=== PATIENT | male | born 1940 | race Caucasian/White ===

== ENCOUNTER 2016-07-31 15:31 | Inpatient (IN) | payer MEDICARE ==
[~2016-07-31] VITALS: Ht 172.7 cm; Wt 71.1 kg
[2016-07-31] VITALS (12 sets, daily range): BP systolic 102–124; BP diastolic 54–71; PULSE 54–70; RESP 12–20; O2SAT 93–98
[2016-07-31] MEDS ORDERED: Heparin 1,000 Units/500 mL NS Premix IV ONE (15:34)
[2016-07-31] MEDS ORDERED: Heparin 5,000 Units/500 mL NS Premix IV ONE (15:34)
[2016-07-31] MEDS ORDERED: Heparin 1,000 Unit/mL 10 mL Inj ONE (15:35)
[2016-07-31] MEDS ORDERED: NitroPRUSSIDE 25,000 mCg/mL 2 mL Inj IV ONE (15:35)
[2016-07-31] MEDS ORDERED: 0.9% Sodium Chloride 250 ML ONE (15:35)
[2016-07-31] MEDS ORDERED: fentaNYL-PF 50 mCg/mL 2 mL Inj ONE (15:40)
[2016-07-31] MEDS ORDERED: Atropine 1 mg/10 mL (Code) Syringe ONE ×2 (15:51→16:04)
[2016-07-31 16:09] LABS: BASOPHILS % (AUTO) 0.5 % (0-3); EOSINOPHILS % (AUTO) 1.9 % (0-5); MONOCYTES % (AUTO) 9.4 % (4-12); Mean Corpuscular Hemoglobin 32.8 pg (27.0-35.0); Mean Corpuscular Volume 98.7 fL (81-100); NEUTROPHILS % (AUTO) 66.4 % (40-74); Platelet Count 235 bil/L (150-400)
[2016-07-31] MEDS ORDERED: Eptifibatide 20,000 mCg/10 mL Inj ONE ×2 (16:09→16:14)
--- NOTE | 2016-07-31 16:37 | DI95 ---
[address] [address] INTERVENTIONAL CARDIAC CATHETERIZATION PATIENT: BRIANNA PHILLIPS : 1940 MR#: [id number] ADMIT: 07/31/2016 JOB ID: [id number] DATE: 07/31/2016 PROCEDURE: 1. Selective right and left coronary angiography. 2. Left heart catheterization. 3. Percutaneous intervention on right coronary artery. INDICATION: Acute inferior NE. PROCEDURAL DETAILS: The reader is referred to the procedure log for complete details. Briefly, it was done via right femoral approach using a 6-Maori system. ANGIOGRAPHIC FINDINGS: 1. Left main: No significant disease. 2. LAD is a moderate caliber vessel. It is free of any critical stenosis. There is a moderate lesion in its proximal segment at the takeoff of a rather large diagonal. It is about 50% in severity. This lesion at some point needs to be evaluated with functional imaging. 3. Circumflex is nondominant and free of any critical stenosis. Mild luminal irregularities are noted. 4. Right coronary artery is a large dominant vessel. It has a stent in its proximal part in the mid segment. The RCA is subtotally occluded. There appears to be large thrombus burden in the RCA. 5. Left heart catheterization revealed an LVEDP of 22. There was no gradient upon pullback. INTERVENTIONAL REPORT: We then proceeded ahead with an intervention of the right coronary artery. A Run-through wire was used along with a standard Ariel guide. Following that, thrombectomy was done with an expressway catheter. We were able to aspirate a fair amount of clot. Subsequent to that, a 4.0 x 30 mm stent was deployed in the mid RCA at 16 atmospheres with excellent angiographic results. The patient is advised to stay on dual antiplatelet therapy for one year post procedure.
[2016-07-31 16:44] LABS: TROPONIN T < 0.010 ug/L (0.0-0.011)
--- NOTE | 2016-07-31 16:44 | CONS ---
[address] [address] CONSULTATION REPORT PATIENT: BRIANNA PHILLIPS : 1940 MR#: [id number] ADMIT: 07/31/2016 JOB ID: [id number] DATE OF SERVICE: 07/31/2016 CHIEF COMPLAINT: Chest discomfort. HISTORY OF PRESENT ILLNESS: This gentleman was transferred from [place] via ambulance. The ambulance alerted our emergency department that there was an acute KS on the way. A field EKG showed inferior ST-segment elevation. The patient was taken directly to the dental laboratory technology teacher. This interview was conducted while the patient was still in the dental laboratory technology teacher. The patient stated that his pain started half an hour before the arrival of the ambulance. He was given morphine en route. Morphine relieved his pain significantly. While I was talking to him he was still having ongoing at least 3/10 chest discomfort. He describes it as a pressure and heaviness in his chest. It occurred while he was unloading his truck. He does not remember having similar episodes in the past few days. Of note, the patient was somewhat anxious and slightly irritable and was in a moderate amount of distress. Some of his responses to my questions were fairly limited with monosyllables. Apparently, the patient has known history of peripheral vascular disease. He has had a vascular procedure on his legs. He also has known history of coronary artery disease having had a stenting procedure in the past. In 2001, there was an angiogram done at this hospital. He follows up with Dr. Joseph. PAST MEDICAL HISTORY: Significant mainly for coronary artery disease and peripheral vascular disease. 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 ALLERGIES: None. MEDICATIONS: At home: 1. Tamsulosin. 2. Aspirin. 3. Fluticasone nasal spray. REVIEW OF SYSTEMS: Comprehensive review of system was done. Pertinent negatives are no GI or bleeding. No upcoming surgeries. No TIAs. No strokes. FAMILY HISTORY: There is no family history of premature coronary artery disease. PERSONAL HISTORY: He is a smoker. He denies any alcohol or drug abuse. PHYSICAL EXAMINATION: Mildly distressed, elderly gentleman who looks his age. Pulse 60, blood pressure 140/70. Neck is supple. No JVD. Chest: Clear. Heart: Sounds S1, S2, regular. No gallops. Abdomen: Soft. Bilateral pulses are palpable. There is a scar from prior surgery on the right groin. Femoral pulses were 2+. HIDE INSPECTOR AND SORTER: Alert, oriented. LABORATORY: Pending. A field EKG showed inferior KS. ASSESSMENT AND PLAN: After obtaining verbal consent from the patient, an angiogram was performed. The details are reported elsewhere. The patient was also given his choices including medical therapy. The patient agreed to proceed ahead with an angiogram. This gentleman has EKG and clinical presentation was consistent with an acute inferior myocardial infarction. He will be admitted to the hospitalist service. Cardiology will follow. In the meantime, I started him on DIMITRIS inhibitors, beta blockers, and dual antiplatelet therapy along with statins. An echocardiogram has been requested for tomorrow. Further management per full discretion of his hospital team. Needless to say, the patient should be encouraged to quit smoking completely.
[2016-07-31 16:47] LABS: Magnesium 1.9 mg/dL (1.6-2.6)
[2016-07-31] MEDS ORDERED: TAMS0.4C98 PO (17:56)
--- NOTE | 2016-07-31 18:22 | NUR ---
RADHA ADMIT 76 YR OLD MALE RECEIVED FROM CUSTOMER SERVICE REPRESENTATIVE TELLER AT 1700 AFTER HEART CATH AND PCI/ANGIOPLASTY. RIGHT GROIN WITH PERCLOSE HAS HAD A SMALL, SLOW LEAK. INTERIOR DESIGNER PACO HAS HELD PRESSURE. 5LB SANDBAG ON. PT NEEDS REMINDING TO KEEP HEAD ON PILLOW AND LEG STRAIGHT. RIGHT DP/PT 2+. CONTINUE TO MONITOR CLOSELY. POST PCI EKG WAS DONE. OTHER VS STABLE. WILL TRANSFER TO [facility] WHEN BED AVAILABLE. PT IS TAKING CLEAR LIQUIDS PO AND IS AWAKE AND VISITING WITH FRIEND.
[2016-07-31] MEDS ORDERED: Sodium Chloride LOK Flush 10 mL Syringe IVFLUSH PRN (18:50)
[2016-07-31] MEDS ORDERED: Clopidogrel 300 mg Tablet (LOADING DOSE) PO ONE (18:50)
[2016-07-31] MEDS ORDERED: Ondansetron 2 mg/mL 2 mL Inj IVPUSH PRN (18:50)
[2016-07-31] MEDS ORDERED: Atropine 1 mg/10 mL (Code) Syringe IVPUSH PRN (18:50)
[2016-07-31] MEDS ORDERED: 0.9% Sodium Chloride 400 ML (4 HRS) IV ONE (18:50)
[2016-07-31] MEDS ORDERED: 0.9% Sodium Chloride 250 ML BOLUS IV PRN (18:50)
[2016-07-31] MEDS ORDERED: Alum-Mag Hydrox-Simeth 30 mL Suspension PO PRN (19:35)
[2016-07-31] MEDS ORDERED: Polyethylene Glycol (PEG) 17 Gm Powder PO PRN (19:35)
--- NOTE | 2016-07-31 19:45 | NUR ---
RADHA TRANSFER PT AND HIS NURSING CARE WERE TRANSFERRED TO ROOM 2026 AT 1930. REPORT AND RN TO RN BEDSIDE HANDOFF WAS DONE WITH VELIA SANTOS. TELE ON AND CONFIRMED WITH MOLECULAR BIOLOGY PROFESSOR. RIGHT GROIN BRUISED BUT OTHERWISE SOFT, NON TENDER, AND NO HEMATOMA NOTED. RIGHT PEDAL PULSES 2+.
[2016-07-31] MEDS ORDERED: MetoCLOpramide 5 mg/mL 2 mL Inj IVPUSH PRN (20:50)
--- NOTE | 2016-07-31 21:26 | PCM.HPMED ---
Subjective Date of Service Jul 31, 2016 Primary Provider: Admitting Physician: Simba Nunez MD Primary Care Physician: Collins Joseph MD Attending Physician: Simba Nunez MD Chief Complaint: Chest pain History of Present Illness: Patient is a 76 year old male with a history of CAD, PVD and BPH. He presented to [facility] via EMS on 07/31/16 with an acute inferior STEMI. This morning the patient reports working outside at home. He was loading objects into a trailer. An argument with a family member ensued and the patient reports beginning to feel chest pain. It was substernal and went into his jaw and left arm. He also felt short of breath. He denies nausea/vomiting. He did no have syncope or dizziness. When it continued for 30 minutes he asked to go to the hospital and EMS was called. It was determined en route that he was having ST elevations and the patient was brought directly to [facility] and the medical lab specialist. Morphine was administered with improvement of his chest discomfort. Cardiac catheterization was performed by Dr. Nunez and the patient received another RCA stent. At the time of this H&P patient reports he is free of symptoms and wishes to eat. The patient reports that he has been having a gradual worsening of his shortness of breath and he has been tolerating less activity. He is uncertain over what time period exactly. He also states that he has had more episodes of dizziness and feeling "wobbly." There have been no syncopal episodes. His symptoms improve with rest. Otherwise, patient has not been unwell with the exception of a head cold about 1 month ago - those symptoms are completely resolved. Review of Systems: A comprehensive review of systems was conducted with the patient and found to be negative except as above in the history of present illness. Allergies Coded Allergies: No Known Allergies (Unverified Allergy, Unknown, 07/31/16) Home Medications Per [employer]: Aspirin 81 mg daily Flonase 2 sprays daily Tamsulosin 0.4 mg daily PMH CAD s/p RCA stent PVD BPH Benign tremor of the head History of two concussions Surgical History Tonsillectomy Appendectomy Family History Family history of Alzheimer's disease, cancer No known family history of CA Social History Hx Alcohol Use: No Hx Substance Use: No Hx Tobacco Use: Yes Smoking Status: Current Every Day Smoker (1/2 PPD for 50+ years) Living Arrangement: with Family Exam Vital Signs Vital Sign - Last Date Time Temp Pulse Resp B/P Pulse Ox O2 Delivery O2 Flow Rate FiO2 07/31/16 19:56 36.5 57 19 117/71 96 Room Air Exam Alert and oriented x3, no acute distress Head atraumatic, normocephalic PERRLA, EOMI, sclera anicteric Mucus membranes dry, no oral thrush observed No cervical lymphadenopathy, neck supple, nontender No JVD noted Cardiac tones regular rate and rhythm with no murmur appreciated Lungs clear to auscultation bilaterally with adequate respiratory effort No abdominal tenderness, non-distended, normoactive bowel tones, soft W[place]sworth absent Radial pulses normal and equivalent bilaterally, dorsalis pedis pulses normal and equivalent bilaterally No cyanosis, clubbing or edema Right groin catheter site with clean, dry dressing; ecchymosis noted but soft to palpation, mildly tender Cranial nerves appear to be fully intact, normal speech, patient can move upper and lower limbs grossly Lab and Diagnostics Result Diagram: 07/31/16 1605 07/31/16 1605 12-lead ECG Rate [address] elevations in leads II, III, aVF Additional Diagnostics: Cardiac catheterization INTERVENTIONAL REPORT: We then proceeded ahead with an intervention of the right coronary artery. A Run-through wire was used along with a standard Ariel guide. Following that, thrombectomy was done with an expressway catheter. We were able to aspirate a fair amount of clot. Subsequent to that, a 4.0 x 30 mm stent was deployed in the mid RCA at 16 atmospheres with excellent angiographic results. The patient is advised to stay on dual antiplatelet therapy for one year post procedure. Simba Nunez MD 07/31/16 1619 Assessment & Plan Patient is a 76 year old male with a history of CAD, PVD and BPH. He presented to [facility] via EMS on 07/31/16 with an acute inferior STEMI. He went directly to medical lab specialist with Dr. Nnuez. Cardiac catheterization was performed and the patient received a thrombectomy followed by RCA stent placement. Admitted for optimization of medications and post-medical lab specialist observation. 1. Acute inferior CA, present on admission. - S/p cardiac catheterization with RCA stent placement. - History of CAD with last stent placed about 10 years ago, also to the RCA. - Begin Plavix 75 mg daily with plans to continue for [address] Nunez. - Continue aspirin 81 mg daily. - Begin atorvastatin 40 mg HS. - Begin lisinopril 5mg daily. - Begin metoprolol tartrate 25 mg BID. - Nitro SL and morphine available PRN chest pain. - Dr. Nunez of cardiology was consulted and we appreciate his input. - Continue telemetry. - Echo ordered and pending for tomorrow. - Physical therapy evaluation ordered for tomorrow. Outpatient cardiac rehab also recommended. 2. Tobacco use disorder, chronic. - Approximately 25 pack year history. - Has been encouraged to quit smoking altogether. Continue to encourage this throughout admission. - Outpatient follow up so that he may get assistance to quit if he needs it. 3. Peripheral vascular disease, chronic, presume stable. - Patient only taking baby aspirin at home. - Beginning dual antiplatelet and statin as above in #1. - Will evaluate additional vascular risk factors such a lipid profile and Hgb A1c. 4. BPH, chronic, presume stable. - Continue tamsulosin 0.4 mg daily. - Tylenol available PRN mild pain, fever. - Antacid available PRN. - Antiemetic available PRN. - Bowel regimen available PRN. Patient admitted under inpatient status with expected length of stay greater than 2 midnights for severity of present symptoms, complexities of treatment plan and risk for adverse events. PCP Collins Joseph MD GI Prophylaxis: Not indicated Resuscitation Status: CPR: Attempt Resuscitation Attending Statement The patient was seen and examined together with Dr. Quezada on 07/31 and I agree with the history, exam and plan as outlined in the note above. copies to: Collins Joseph MD, Jennifer E DO Jul 31, 2016 20:55 Param Nam MD Jul 31, 2016 22:00
[2016-07-31 21:31] LABS: APPEARANCE,URINE CLEAR (CLEAR,HAZY); COLOR,URINE YELLOW (YELLOW); OCCULT BLOOD,URINE SMALL (NEGATIVE); PH,URINE 6.5 (5.0-8.0); UROBILINOGEN,URINE NORMAL (NORMAL)
[2016-08-01] VITALS (9 sets, daily range): BP systolic 96–114; BP diastolic 48–66; PULSE 44–61; RESP 16–18; O2SAT 95–98
[2016-08-01 04:46] LABS: BASOPHILS % (AUTO) 0.2 % (0-3); EOSINOPHILS % (AUTO) 2.6 % (0-5); MONOCYTES % (AUTO) 11.7 % (4-12); Mean Corpuscular Hemoglobin 33.2 pg (27.0-35.0); NEUTROPHILS % (AUTO) 70.2 % (40-74); Platelet Count 177 bil/L (150-400)
[2016-08-01 05:07] LABS: Magnesium 1.9 mg/dL (1.6-2.6); Phosphorus 3.3 mg/dL (2.5-4.9)
--- NOTE | 2016-08-01 05:40 | NUR ---
Cardiac: Tele Sbrady 40-60 with PACs overnight. Order for 25mg PO metoprolol. Discussed with Dr. Lou who said to hold metoprolol for HR <60. Evening dose held. Pt denies any chest pain or discomfort. Vitals stable. Right groin site asymptomatic. Distal pulses palpable.
--- NOTE | 2016-08-01 09:00 | NUR ---
Social Work Assessment given to Float CAR PORTER to complete today.
--- NOTE | 2016-08-01 10:15 | PROG NOTE ---
[address] [address] PROGRESS NOTE PATIENT: BRIANNA PHILLIPS : 1940 MR#: [id number] ADMIT: 07/31/2016 JOB ID: [id number] DATE: 08/01/2016 SUBJECTIVE: Patient lying on bed. Denies any active chest pain or worsening shortness of breath or PND, orthopnea, palpitations, dizziness, syncope or groin bleed. In summary, this 76-year-old male who has a history of CAD, PVD details not available at present, history of benign tremors of the head, hyperlipidemia presented with acute coronary syndrome, ST-elevation inferior wall GA. The patient was taken to the car barn laborer by Dr. Nunez yesterday. Left heart catheterization revealed about 50% mid LAD disease, occluded right coronary artery in the mid portion, has a stent in the proximal portion as well which was old with LVEDP about 22 mmHg. There was a large thrombus burden in the right coronary artery. Subsequently, the patient underwent aspiration thrombectomy and received 4 x 38 mm Xience drug-coated stent. OBJECTIVE: Blood pressure 100/48, heart rate in the 50s. Respiratory rate 16, oxygen saturation on room air 97%. Neck: No apparent JVD. I do not appreciate any obvious carotid bruits. Chest: No obvious crepitation, rhonchi. CVS: Clinically S1, S2 normal. No S3, no S4. No significant murmur. Abdomen: No obvious pulsatile mass. The right groin examination did not reveal any significant hematoma. I do not appreciate any pulsatile mass or obvious bruit. Extremities: No evidence of critical limb ischemia. UTILIZATION MANAGEMENT RN: Alert, oriented to time, place and person. No obvious motor deficit. Telemetry: The patient has sinus rhythm with occasional PACs, PVCs with underlying sinus bradycardia. Today at about 5 o'clock he had sinus bradycardia, rate about 47. No pauses of more than 3 seconds seen. LABORATORIES: Sodium 138, potassium 4.0, BUN 14, creatinine 0.73, magnesium 1.9. Normal AST, ALT. Triglycerides 116, total cholesterol 247, LDL 155, HDL 68. Hemoglobin 13.5, platelets 177, WBC 8.8. ASSESSMENT/PLAN: Acute coronary syndrome with ST-elevation inferior wall myocardial infarction status post left heart catheterization which revealed large thrombus with subtotally occluded mid right coronary artery status post drug-coated stent with underlying hyperlipidemia, history of peripheral arterial disease, sinus bradycardia. Clinically he appears compensated. He is not in gross congestive heart failure. We will follow his echocardiogram. He has underlying sinus bradycardia. He is on metoprolol 25 mg twice a day. which I will hold and start with metoprolol succinate small dose like 12.5 mg daily from today if his heart rate remains stable. Hopefully after right coronary artery intervention, his rhythm will get better. He is to stay on aspirin and Plavix for at least one year. He is on high intensity statin as well as DIMITRIS inhibitor. Preventive measures discussed. Tomorrow, if he remains stable, ambulating without any problem, he can be discharged home. He will need cardiac rehab. Followup with Dr. Nunez as an outpatient. Total time spent about 40 minutes.
--- NOTE | 2016-08-01 12:07 | DRSVH ---
Formerly [facility] [address] [place] [address] Echocardiogram Report Name: BRIANNA PHILLIPS Jagdeep e: 08/01/2016 Height: 71 in Hospital Exam Location: [facility] Weight: 158 lb Gender: Other BSA: 1.9 m2 : 1940 Age: 76 yrs BP: 111/66 mmHg Reason For Study: CHEST PAIN Ordering Physician: Performed By: Ritchie Diaz Interpretation Summary The left ventricle is borderline dilated. Left ventricular ejection fraction is estimated to be 50 +/- 5%. Basal inferior is akinetic and anuerysmal, inferior and inferolateral segments are mildly hypokinetic. Small segmant of inferior apex is thinned out and akinetic The left atrium is severely dilated. There is mild mitral regurgitation. Procedure: A two-dimensional transthoracic echocardiogram with color flow and Doppler was performed. The study quality was technically good. There is no prior echocardiogram noted for this patient. The patient was in normal sinus rhythm during the exam. The patient had occasional PACs during the exam. The patient had occasional PVCs during the exam. Left Ventricle: There is normal left ventricular wall thickness. The left ventricle is borderline dilated. There is no thrombus. Left ventricular ejection fraction is estimated to be 50 +/- 5%. Basal inferior is akinetic and anuerysmal, inferior and inferolateral segments are mildly hypokinetic. Small segmant of inferior apex is thinned out and akinetic. Right Ventricle: The right ventricle is normal in size and function. Atria: The left atrium is severely dilated. The right atrium is mildly dilated. The interatrial septum is intact with no evidence for an atrial septal defect. Mitral Valve: The mitral valve is normal in structure and function. There is mild mitral regurgitation. Aortic Valve: The aortic valve opens well. The aortic valve is slightly calcified. No aortic regurgitation is present. Tricuspid Valve: The tricuspid valve is normal in structure and function. There is trace tricuspid regurgitation. Pulmonary artery pressures cannot be estimated because of the lack of a measurable TR jet velocity. Pulmonic Valve: The pulmonic valve is not well seen, but is grossly normal. There is trace pulmonic regurgitation. Great Vessels: The aortic root is normal size. The ascending aorta is mildly enlarged. The pulmonary artery is normal size. The IVC is of normal diameter and collapses greater than 50% with a sniff. This suggests a low right atrial pressure of 3 mm Hg. Pericardium/ Pleura There is no pericardial effusion. There is no pleural effusion. MMode/2D Measurements & Calculations LVIDd: 5.8 cm LA dimension: 4.5 cm RA long axis: 5.6 cm AoV Opening LVIDs: 3.9 cm FS: 31.8 % LA A2 area: 25.3 cm RA area: 22.3 cm Ao root diam EPSS: 0.95 cm LA A4 area: 26.9 cm RA vol: 75.6 ml IVSd: 0.91 cm LA length (vol) RA : 39.6 ml/m2 Aortic Jxn: 2.6 cm LVPWd: 1.0 cm asc Aorta Diam LA vol: 92.7 ml LA vol index Ao Arch Diam (Prox Trans): 3.0 cm IVC diam: 1.7 cm EDV(MOD-sp2) LV hough. diameter/BSA LV sys. diameter/BSA RVD1 (basal) : 105.1 ml (cm/m^2): 3.0 (cm/m^2): 2.1 : 4.0 cm RVD2 (mid) : 3.9 cm Doppler Measurements & Calculations Ao V2 max MV E max rome MV E/A: 0.65 PA V2 max: 77.4 cm/sec : 176.7 cm/sec : 68.5 cm/sec Med Peak E' Rome PA mean P.2 mmHg Ao max PG MV A max rome PA Accel Time: 0.13 sec : 12.5 mmHg : 104.8 cm/sec E/E' med: 14.1 Ao mean PG Pulm A Revs Dur : 7.0 mmHg MV A dur: 0.18 sec MV dec time Ao V2 mean PA V2 mean Pulm A Revs Dur - MV A : 0.26 sec : 126.1 cm/sec : 50.8 cm/sec Dur: -0.01 msec Ao V2 VTI: 39.2 cmPA pr(Accel) : 19.1 mmHg Electronically signed by: Simba Nunez on Reading Physician:08/01/2016 12:06 PM
--- NOTE | 2016-08-01 12:56 | NUR ---
Right groin Patient resting in bed, up a few times, denies SOB, dizziness or pain in leg. Pt right groin sight bandaged, bruising around site, no signs of hematoma or pain on palpitation. Patient states he is ready to go home. Care continues.
--- NOTE | 2016-08-01 16:40 | NUR ---
Ambulation Patient ambulating around unit successfully. Patient walking with grown granddaughter, tolerated walking. Denies chest pain, SOB, dizziness. Denies pain in right leg or groin.
--- NOTE | 2016-08-01 17:30 | NUR ---
Social Work: Initial Assessment D: Per EMR review, pt is a 76 year old male admitted for STEMI. Pt is [employer] Medicare with no supplement, LTC insur. or VA benefits. PCP is Collins Joseph MD> NOK is Delia Saez, Friend, . Advanced directives not completed- information provided by RAILROAD CARMAN. Readmit score not entered at this time. RAILROAD CARMAN met with pt at bedside. Sw role explained. See initial assessment. Pt lives with a friend her her daughter in [place]. Pt is I at baseline, uses no DME, continues to drive and has been ambulating I in the hallways. Pt has no SNF or HH history. Pt states his friend will transport him home when medically stable and has no concerns about d/c home. EMR reviewed, no sw needs or barriers identified at this time. A: Pt who is I at baseline. P: Anticipate pt to discharge home when medically stable; RAILROAD CARMAN to continue to follow and assist if needs arise. TRINA Callejas Addendum: 08/01/16 at 1733 by CHRIS VAN Amended: Links added.
--- NOTE | 2016-08-01 17:56 | PCM.PNMED ---
Subjective Date of Service Aug 01, 2016 Subjective Patient without complaints of chest pain, dyspnea, nausea and vomiting. At one point today he was planning on leaving AGAINST MEDICAL ADVICE think he had a full understanding of the recent events and how they could have been end-of- life events. Exam Vital Signs Vital Sign - Last Date Time Temp Pulse Resp B/P Pulse Ox O2 Delivery O2 Flow Rate FiO2 08/01/16 17:09 36.9 56 18 96/58 96 Room Air Intake and Output 07/31/16 07/31/16 08/01/16 Cumulative From/Thru 15:00 23:00 07:00 07/31/16 19:30 - 08/01/16 06:05 Intake Total 800 ml 320 ml 1120 ml Output Total 500 ml 500 ml Balance 800 ml -180 ml 620 ml Intake Oral 320 ml 320 ml IV Total 800 ml 800 ml Output Urine Total 500 ml 500 ml # Voids 3 3 Exam Gen.- A+ O 3 no apparent distress. He seems to have fairly significant tremor states that this is chronic and old. Eyes- open conjunctiva clear, pupils equal nonicteric Mouth- oral mucosa moist, no exudate ENT- ears normal, nose normal Neck- supple/trach midline CVS- RRR no murmur or gallop Lungs CTA GI- NABS/NT soft Musc- moving 4 no obvious deformity Neuro- cranial nerves II through XII intact to gross examination, nonfocal Skin- warm and dry, no rashes/lesions/wounds noted Psych- pleasant and appropriate, later in the day kind of anxious and needed to be redirected when he wanted to try and leave AGAINST MEDICAL ADVICE. Lab and Diagnostics Result Diagram: 08/01/16 0432 08/01/16 0432 12-lead ECG Rate [address] elevations in leads II, III, aVF Additional Diagnostics Cardiac catheterization INTERVENTIONAL REPORT: We then proceeded ahead with an intervention of the right coronary artery. A Run-through wire was used along with a standard Ariel guide. Following that, thrombectomy was done with an expressway catheter. We were able to aspirate a fair amount of clot. Subsequent to that, a 4.0 x 30 mm stent was deployed in the mid RCA at 16 atmospheres with excellent angiographic results. The patient is advised to stay on dual antiplatelet therapy for one year post procedure. Simba Nunez MD 07/31/16 6922 Assessment & Plan Patient is a 76 year old male with a history of CAD, PVD and BPH. He presented to [facility] via EMS on 07/31/16 with an acute inferior STEMI. He went directly to cath lab radiological technologist with Dr. Nunez. Cardiac catheterization was performed and the patient received a thrombectomy followed by RCA stent placement. Admitted for optimization of medications and post-cath lab radiological technologist observation. 1. Acute inferior [place], present on admission. - S/p cardiac catheterization with RCA stent placement 07/31, - History of CAD with last stent placed about 10 years ago, also to the RCA. - Begin Plavix 75 mg daily with plans to continue for [address] Nunez. - Continue aspirin 81 mg daily. - Begin atorvastatin 40 mg HS. - Begin lisinopril 5mg daily. - Begin metoprolol tartrate 25 mg BID. - Nitro SL and morphine available PRN chest pain. - Dr. Nunez of cardiology was consulted and we appreciate his input. - Continue telemetry. - Echo ordered and pending for tomorrow. - Physical therapy evaluation ordered for tomorrow. Outpatient cardiac rehab also recommended. 2. Tobacco use disorder, chronic. - Approximately 25 pack year history. - Has been encouraged to quit smoking altogether. Continue to encourage this throughout admission. - Outpatient follow up so that he may get assistance to quit if he needs it. 3. Peripheral vascular disease, chronic, presume stable. - Patient only taking baby aspirin at home. - Beginning dual antiplatelet and statin as above in #1. - Will evaluate additional vascular risk factors such a lipid profile and Hgb A1c. 4. BPH, chronic, presume stable. - Continue tamsulosin 0.4 mg daily. - Tylenol available PRN mild pain, fever. - Antacid available PRN. - Antiemetic available PRN. - Bowel regimen available PRN. Patient clinically stable, no issues with blood pressure arrhythmias or pain the only event was not where the patient wanted to leave AGAINST MEDICAL ADVICE that required some redirection. I am prescribing a bit of Ativan when necessary for anxiety/insomnia. Hopefully we will be up with discharge first thing 08/02. 08/01.First meeting patient who had cath yesterday and intervention 07/31 as outlined above. GI Prophylaxis: Not indicated Resuscitation Status: CPR: Attempt Resuscitation Jeronimo Pennington MD Aug 01, 2016 17:55
[2016-08-01] MEDS: LORazepam 0.5 mg Tablet PO PRN (20:01)
[2016-08-02] VITALS (10 sets, daily range): BP systolic 81–110; BP diastolic 42–66; PULSE 58–78; RESP 16–20; O2SAT 92–95
--- NOTE | 2016-08-02 05:47 | NUR ---
Cardiac: Tele Sr- Sbrady 40-60 with PAC. pt denies any pain. groin site asymptomatic. PRN PO Ativan given for insomnia/ restlessness. pt sleeping comfortably throughout the night.
[2016-08-02] MEDS ORDERED: MeTOProlol XL 25 mg ER24 Tablet PO SCH (08:30)
--- NOTE | 2016-08-02 08:45 | NUR ---
[facility] Signed
--- NOTE | 2016-08-02 10:16 | NUR ---
Medications BP 96/57 with recheck of 94/49 pulse 61. Held Lisinopril and Metoprolol. notified. okay with giving 12.5 mg of Metoprolol.
--- NOTE | 2016-08-02 17:39 | PROG NOTE ---
[address] [address] PROGRESS NOTE PATIENT: BRIANNA PHILLIPS : 1940 MR#: [id number] ADMIT: 07/31/2016 JOB ID: [id number] DATE: 08/02/2016 SUBJECTIVE: Patient denies any active chest pain, shortness of breath, PND, orthopnea, palpitations, dizziness, or syncope. In summary, this 76-year-old male who has a history of CAD, PVD presented with acute coronary syndrome with ST-elevation inferior wall myocardial infarction. The patient was taken to the cathead worker. The patient had about 50% mid LAD and occluded right coronary artery in the mid portion. Subsequently, the patient underwent drug coated stent placement with Xience 4 x 38 mm in the mid RCA by Dr. Nunez. The patient also had aspiration thrombectomy. He had echocardiogram yesterday which revealed LV ejection fraction 50% +/- 5% with akinetic to aneurysmal basal inferior wall and mildly hypokinetic inferior lateral wall. There was mild mitral regurgitation. OBJECTIVE: Blood pressure 96/54 to 108/66, heart rate in 60s, respiratory rate 18, oxygen saturation 90%. Neck: No apparent JVP. Chest: No obvious crepitation or rhonchi. CVS: Clinically S1, S2 normal. No S3, no S4. No significant murmur. Abdomen: No obvious pulsatile mass. Extremities: No significant pedal edema. No evidence of critical limb ischemia. OFFSHORE WIND TURBINE TECHNICIAN: Alert. Oriented to time, place, and person. The patient has had a tremor which is chronic. LABORATORIES: Sodium 139, potassium 3.9, BUN 14, creatinine 0.78, magnesium 1.9. Hemoglobin 13.5, platelets 177. Telemetry: The patient has sinus rhythm but also has short bursts of nonsustained ventricular tachycardia rate about 150. ASSESSMENT AND PLAN: Acute coronary syndrome with ST-elevation myocardial infarction involving inferior wall status post left heart catheterization status post drug-coated stent placement to the mid RCA with underlying ischemic heart disease, nonsustained ventricular tachycardia, history of PAD. Clinically, the patient appears compensated. Now his bradycardia has improved. Will increase metoprolol succinate to 12.5 mg twice a day. We will also recommend arranging Life Vest device for him. We will check TSH. Continue aspirin, Plavix, high intensity statin. To accommodate a beta leah I will cut down lisinopril from 5 mg to 2.5 mg daily. Continue to push upward beta leah as long as systolic blood pressure remains more than 90 and heart rate more than 50. I would prefer target dose about 25 mg twice a day metoprolol succinate. Discussed the plan with the patient as well as his son. The patient will also benefit with cardiac rehab. Discussed the plan with Hospitalist team. Follow up with Dr. Nunez as an outpatient in cardiology. At present, cardiology service will see him on as-needed basis.
--- NOTE | 2016-08-02 18:49 | NUR ---
Anxious At approximately 1815 patient's son in room visiting. This RN noticed adult son pale, sweating, stated he did not feel well, SOB, leaning forward stated his chest felt tight, denied pain and stated he needed to lay down. This RN notified [facility] nurses who escorted son to ED. This RN reassured patient. Sons significant other followed to the ED and stated she would call Father with news. Patient out of room several times after son left, reoriented patient and walked back to room. notified. MD talked with patient.
[2016-08-02] MEDS: MeTOProlol XL 25 mg ER24 Tablet PO SCH (20:03)
--- NOTE | 2016-08-02 20:36 | PCM.PNMED ---
Subjective Date of Service Aug 02, 2016 Subjective Patient not having chest pain, dyspnea, nausea or vomiting. His Terrible memory so he might not remember even if he did. The only thing he continually states as he wants to go home Exam Vital Signs Vital Sign - Last Date Time Temp Pulse Resp B/P Pulse Ox O2 Delivery O2 Flow Rate FiO2 08/02/16 20:07 67 08/02/16 19:54 36.9 16 103/55 93 Room Air Intake and Output 08/01/16 08/01/16 08/02/16 Cumulative From/Thru 15:00 23:00 07:00 07/31/16 19:30 - 08/02/16 06:06 Intake Total 600 ml 550 ml 2270 ml Output Total 500 ml Balance 600 ml 550 ml 1770 ml Intake Oral 600 ml 550 ml 1470 ml IV Total 800 ml Output Urine Total 500 ml # Voids 4 4 11 IVs and Medications Medications Gen.- A+ O 3 no apparent distress. He seems to have fairly significant tremor states that this is chronic and old. Eyes- open conjunctiva clear, pupils equal nonicteric Mouth- oral mucosa moist, no exudate ENT- ears normal, nose normal Neck- supple/trach midline CVS- RRR no murmur or gallop Lungs CTA GI- NABS/NT soft Musc- moving 4 no obvious deformity Neuro- cranial nerves II through XII intact to gross examination, nonfocal Skin- warm and dry, no rashes/lesions/wounds noted Psych- pleasant and appropriate, later in the day kind of anxious and needs redirection when he wants to try and leave AGAINST MEDICAL ADVICE. Lab and Diagnostics Result Diagram: 08/01/16 0432 08/02/16 0443 12-lead ECG Rate [address] elevations in leads II, III, aVF Cardiac Echo Impressions ECHO 08/01 [place] Interpretation Summary The left ventricle is borderline dilated. Left ventricular ejection fraction is estimated to be 50 +/- 5%. Basal inferior is akinetic and anuerysmal, inferior and inferolateral segments are mildly hypokinetic. Small segmant of inferior apex is thinned out and akinetic The left atrium is severely dilated. There is mild mitral regurgitation. Additional Diagnostics Cardiac catheterization INTERVENTIONAL REPORT: We then proceeded ahead with an intervention of the right coronary artery. A Run-through wire was used along with a standard Ariel guide. Following that, thrombectomy was done with an expressway catheter. We were able to aspirate a fair amount of clot. Subsequent to that, a 4.0 x 30 mm stent was deployed in the mid RCA at 16 atmospheres with excellent angiographic results. The patient is advised to stay on dual antiplatelet therapy for one year post procedure. Simba Nunez MD 07/31/16 1619 Assessment & Plan Patient is a 76 year old male with a history of CAD, PVD and BPH. He presented to [facility] via EMS on 07/31/16 with an acute inferior STEMI. He went directly to prosthetic lab technician with Dr. Nunez. Cardiac catheterization was performed and the patient received a thrombectomy followed by RCA stent placement. Admitted for optimization of medications and post-prosthetic lab technician observation. 08/02 patient had run of V. tach we are optimizing electrolytes, to get him a LifeVest. Acute inferior [place], present on admission. - S/p cardiac catheterization with RCA stent placement 07/31, - History of CAD with last stent placed about 10 years ago, also to the RCA. Plavix 75 mg daily x1 year/aspirin 81 mg daily/atorvastatin 40 mg HS/lisinopril 2.5mg daily/metoprolol 12.5mg BID. Nitro SL and morphine available PRN chest pain.Sky Nunez of cardiology was consulted and we appreciate his input. Continue telemetry. Outpatient cardiac rehab also recommended. ? Cognitive impairment?-Will have speech to cognitive evaluation patient's memory seems terrible Tremor-this may be undiagnosed benign familial tremor versus Parkinson's not clear yet to be more resting probably needs outpatient follow-up patient downplays any significance. Tobacco use disorder, chronic.Approximately 25 pack year history. Has been encouraged to quit smoking altogether. Continue to encourage this throughout admission PAD, chronic, presume stable. Smoking cessation and cardiac meds BPH, chronic, presume stable. - Continue tamsulosin 0.4 mg daily. Prophylaxis-none new indicated patient's of basal Disposition-agent is full code from home Unfortunately her we are waiting for a LifeVest for this patient. He wants to leave and other than treating him for an episode of ventricular tachycardia should it occur regard doing nothing for him. His memory fails him and he does not always remember but he is retracted if we tell him if he leaves he may . GI Prophylaxis: Not indicated Resuscitation Status: CPR: Attempt Resuscitation Jeronimo Pennington MD Aug 02, 2016 20:36
[2016-08-03] VITALS (7 sets, daily range): BP systolic 96–111; BP diastolic 45–68; PULSE 54–97; RESP 18–20; O2SAT 93–97
--- NOTE | 2016-08-03 07:39 | NUR ---
Mentation Patient walking around unit the start of shift, confused, forgetful and anxious. Pt asking where son is, and asking to speak to MD, pt does not remember this RN. Patients baseline forgetfulness increasing notified MD 08/02/16. Patient stated he wants to leave. Redirected patient walked back to room. Per report pt did not sleep all night.
[2016-08-03] MEDS: MeTOProlol XL 25 mg ER24 Tablet PO SCH ×2 (08:24→19:36)
--- NOTE | 2016-08-03 13:45 | PCM.PNMED ---
Subjective Date of Service Aug 03, 2016 Subjective No new complaints of chest pain, dyspnea, nausea vomiting Exam Vital Signs Vital Sign - Last Date Time Temp Pulse Resp B/P Pulse Ox O2 Delivery O2 Flow Rate FiO2 08/03/16 11:55 37.0 59 18 100/45 93 Room Air Intake and Output 08/02/16 08/02/16 08/03/16 Cumulative From/Thru 15:00 23:00 07:00 07/31/16 19:30 - 08/03/16 06:57 Intake Total 800 ml 275 ml 3345 ml Output Total 500 ml Balance 800 ml 275 ml 2845 ml Intake Oral 800 ml 275 ml 2545 ml IV Total 800 ml Output Urine Total 500 ml # Voids 5 3 19 # Bowel Movements 3 1 4 Exam Gen.-Sitting up in bed reading paper no apparent distress. Eyes- open conjunctiva clear, pupils equal nonicteric Mouth- oral mucosa moist, no exudate ENT- ears normal, nose normal Neck- supple/trach midline CVS- RRR Lungs regular rate no evidence of respiratory distress GI-abdomen flat Musc- moving 4 no obvious deformity Neuro- cranial nerves II through XII intact to gross examination, nonfocal Skin- warm and dry, no rashes/lesions/wounds noted Psych-calm. Lab and Diagnostics Result Diagram: 08/01/16 0432 08/02/16 0443 12-lead ECG Rate [address] elevations in leads II, III, aVF Cardiac Echo Impressions ECHO 08/01 [place] Interpretation Summary The left ventricle is borderline dilated. Left ventricular ejection fraction is estimated to be 50 +/- 5%. Basal inferior is akinetic and anuerysmal, inferior and inferolateral segments are mildly hypokinetic. Small segmant of inferior apex is thinned out and akinetic The left atrium is severely dilated. There is mild mitral regurgitation. Additional Diagnostics Cardiac catheterization INTERVENTIONAL REPORT: We then proceeded ahead with an intervention of the right coronary artery. A Run-through wire was used along with a standard Ariel guide. Following that, thrombectomy was done with an expressway catheter. We were able to aspirate a fair amount of clot. Subsequent to that, a 4.0 x 30 mm stent was deployed in the mid RCA at 16 atmospheres with excellent angiographic results. The patient is advised to stay on dual antiplatelet therapy for one year post procedure. Simba Nunez MD 07/31/16 [id number] Assessment & Plan Patient is a 76 year old male with a history of CAD, PVD and BPH. He presented to [facility] via EMS on 07/31/16 with an acute inferior STEMI. He went directly to cardiac catheterization technician with Dr. Nunez. Cardiac catheterization was performed and the patient received a thrombectomy followed by RCA stent placement. Admitted for optimization of medications and post-cardiac catheterization technician observation. 08/03 No new events still waiting for LifeVest Acute inferior [place], present on admission. - S/p cardiac catheterization with RCA stent placement 07/31, - History of CAD with last stent placed about 10 years ago, also to the RCA. Plavix 75 mg daily x1 year/aspirin 81 mg daily/atorvastatin 40 mg HS/lisinopril 2.5mg daily/metoprolol 12.5mg BID. Nitro SL and morphine available PRN chest pain.Sky Nunez of cardiology was consulted and we appreciate his input. Continue telemetry. Outpatient cardiac rehab also recommended. ? Cognitive impairment?-Will have speech to cognitive evaluation patient's memory seems terrible Tremor-this may be undiagnosed benign familial tremor versus Parkinson's not clear yet to be more resting probably needs outpatient follow-up patient downplays any significance. Tobacco use disorder, chronic.Approximately 25 pack year history. Has been encouraged to quit smoking altogether. Continue to encourage this throughout admission PAD, chronic, presume stable. Smoking cessation and cardiac meds BPH, chronic, presume stable. - Continue tamsulosin 0.4 mg daily. Prophylaxis-none new indicated patient's of basal Disposition-agent is full code from home Unfortunately her we are waiting for a LifeVest for this patient. He wants to leave and other than treating him for an episode of ventricular tachycardia should it occur regard doing nothing for him. His memory fails him and he does not always remember but he is retracted if we tell him if he leaves he may . GI Prophylaxis: Not indicated Resuscitation Status: CPR: Attempt Resuscitation Jeronimo Pennington MD Aug 03, 2016 13:45
--- NOTE | 2016-08-03 17:07 | NUR ---
Social Work: Readiness for Discharge D: Pt discussed in am rounds. Pt is awaiting a Life Vest prior to discharge. Pt has been ambulating I during admission. Pt presents with some memory deficits, particularly with short term memory. MD has consulted Speech Therapy for a cognitive evaluation, this is pending. A: Pt who is I with ambulation and lives with his friend, Delia. P: Anticipate pt to discharge home via POV once pt receives his Life Vest. CONSUMER BANKER to continue to follow. TRINA Callejas
[2016-08-03] MEDS: LORazepam 0.5 mg Tablet PO PRN (19:34)
[2016-08-04 00:26] VITALS: BP 113/70; PULSE 52; RESP 18; O2SAT 95
[2016-08-04 04:30] VITALS: BP 111/70; PULSE 57; RESP 18; O2SAT 97
[2016-08-04 08:30] VITALS: BP 104/68; PULSE 60; RESP 18; O2SAT 98
[2016-08-04] MEDS: MeTOProlol XL 25 mg ER24 Tablet PO SCH (08:30)
[2016-08-04 11:23] VITALS: PULSE 57
[2016-08-04 12:28] VITALS: BP 109/61; PULSE 58; RESP 18; O2SAT 95
--- NOTE | 2016-08-04 16:09 | PCM.PNMED ---
Subjective Date of Service Aug 04, 2016 Subjective No new complaints Exam Vital Signs Vital Sign - Last Date Time Temp Pulse Resp B/P Pulse Ox O2 Delivery O2 Flow Rate FiO2 08/04/16 12:28 36.9 58 18 109/61 95 Room Air Intake and Output 08/03/16 08/03/16 08/04/16 Cumulative From/Thru 14:59 22:59 06:59 07/31/16 19:30 - 08/04/16 06:10 Intake Total 800 ml 300 ml 4445 ml Output Total 500 ml Balance 800 ml 300 ml 3945 ml Intake Oral 800 ml 300 ml 3645 ml IV Total 800 ml Output Urine Total 500 ml # Voids 3 2 24 # Bowel Movements 1 5 Lab and Diagnostics Result Diagram: 08/01/16 0432 08/02/16 0443 12-lead ECG Rate [address] elevations in leads II, III, aVF Cardiac Echo Impressions ECHO 08/01 [place] Interpretation Summary The left ventricle is borderline dilated. Left ventricular ejection fraction is estimated to be 50 +/- 5%. Basal inferior is akinetic and anuerysmal, inferior and inferolateral segments are mildly hypokinetic. Small segmant of inferior apex is thinned out and akinetic The left atrium is severely dilated. There is mild mitral regurgitation. Additional Diagnostics Cardiac catheterization INTERVENTIONAL REPORT: We then proceeded ahead with an intervention of the right coronary artery. A Run-through wire was used along with a standard Ariel guide. Following that, thrombectomy was done with an expressway catheter. We were able to aspirate a fair amount of clot. Subsequent to that, a 4.0 x 30 mm stent was deployed in the mid RCA at 16 atmospheres with excellent angiographic results. The patient is advised to stay on dual antiplatelet therapy for one year post procedure. Simba Nunez MD 07/31/16 [id number] Assessment & Plan Patient is a 76 year old male with a history of CAD, PVD and BPH. [facility]16 with an acute inferior STEMI. He went directly to chemistry lab instructor with Dr. Nunez. Cardiac catheterization was performed and the patient received a thrombectomy followed by RCA stent placement. Admitted for optimization of medications and post-chemistry lab instructor observation. 08/04 No new events still waiting for LifeVest Acute inferior [place], present on admission. - S/p cardiac catheterization with RCA stent placement 07/31, - History of CAD with last stent placed about 10 years ago, also to the RCA. Plavix 75 mg daily x1 year/aspirin 81 mg daily/atorvastatin 40 mg HS/lisinopril 2.5mg daily/metoprolol 12.5mg BID. Nitro SL and morphine available PRN chest pain.Sky Nunez of cardiology was consulted and we appreciate his input. Continue telemetry. Outpatient cardiac rehab also recommended. ? Cognitive impairment?-Will have speech to cognitive evaluation patient's memory seems terrible still not obtained after being ordered 08/03 today is 08/04 Tremor-this may be undiagnosed benign familial tremor versus Parkinson's not clear yet to be more resting probably needs outpatient follow-up patient downplays any significance. Tobacco use disorder, chronic.Approximately 25 pack year history. Has been encouraged to quit smoking altogether. Continue to encourage this throughout admission PAD, chronic, presume stable. Smoking cessation and cardiac meds BPH, chronic, presume stable. - Continue tamsulosin 0.4 mg daily. Prophylaxis-none new indicated patient's of basal Disposition-pt is full code from home Waiting for a LifeVest for this patient. He wants to leave and other than treating him for an episode of ventricular tachycardia should it occur regard doing nothing for him. His memory fails him and he does not always remember but he is retracted if we tell him if he leaves he may . GI Prophylaxis: Not indicated Resuscitation Status: CPR: Attempt Resuscitation Jeronimo Pennington MD Aug 04, 2016 16:09
--- NOTE | 2016-08-04 16:12 | NUR ---
Social Work ARNOLDO: ARNOLDO signed
[2016-08-04 17:17] VITALS: BP 99/58; PULSE 67; RESP 18; O2SAT 95
--- NOTE | 2016-08-04 18:35 | PCM.DIMED ---
Discharge Instructions Date of Service Aug 04, 2016 Dates of Hospitalization Jul 31, 2016 at 17:45 Discharge Diagnosis Discharge Diagnosis N STEMI anterior VT Medication Instructions must take aspirin and Plavix I think this is been reinforced sufficiently or your stent may thrombose Test Results Cardiac catheterization RCA occlusion similar to that in the past stent was deployed with successfully Diet Heart Healthy Activity No restrictions Call your provider Shortness of breath, Chest pain Patient Instructions Call your house worker general for follow-up Take your medications Follow-up plan Call for cardiology follow-up immediately they can schedule appointment appropriately What your primary care provider know you are in the hospital he may not need follow-up with him. Follow-up Provider: Collins Joseph MD Follow-up with PCP in: Other (call) Provider: Kim Hatch MD Follow-up in: Other (call for follow-up) Jeronimo Pennington MD Aug 04, 2016 18:35
[2016-08-04] MEDS ORDERED: NITR0.4T SL (18:39)
[2016-08-04] MEDS ORDERED: ATOR40TA69 PO (18:39)
[2016-08-04] MEDS ORDERED: CLOP75TA28 PO (18:39)
[2016-08-04] MEDS ORDERED: METO25TA99 PO (18:39)
[2016-08-04] MEDS ORDERED: LISI-571 PO (18:39)
--- NOTE | 2016-08-04 18:46 | PCM.DC.MED ---
Discharge Summary Date of Service Aug 04, 2016 Dates of Hospitalization Date of Hospital Admission Jul 31, 2016 at 17:45 Date of Discharge: Aug 04, 2016 Providers: Admitting Physician: Simba Nunez MD Primary Care Physician: Collins Joseph MD Attending Physician: Simba Nunez MD Diagnosis at Time of Discharge Diagnosis at Time of Discharge N STEMI anterior UT Consultations Cardiology Dr Hatch Procedures ECG 12 Lead Rate [address] elevations in leads II, III, aVF Cardiac Echo Impression ECHO 08/01 [place] Interpretation Summary The left ventricle is borderline dilated. Left ventricular ejection fraction is estimated to be 50 +/- 5%. Basal inferior is akinetic and anuerysmal, inferior and inferolateral segments are mildly hypokinetic. Small segmant of inferior apex is thinned out and akinetic The left atrium is severely dilated. There is mild mitral regurgitation. Other Diagnostics Cardiac catheterization INTERVENTIONAL REPORT: We then proceeded ahead with an intervention of the right coronary artery. A Run-through wire was used along with a standard Ariel guide. Following that, thrombectomy was done with an expressway catheter. We were able to aspirate a fair amount of clot. Subsequent to that, a 4.0 x 30 mm stent was deployed in the mid RCA at 16 atmospheres with excellent angiographic results. The patient is advised to stay on dual antiplatelet therapy for one year post procedure. Simba Nunez MD 07/31/16 1619 Brief History chest pain. It was substernal and went into his jaw and left arm. He also felt short of breath. Hospital Course Patient is a 76 year old male with a history of CAD, PVD and BPH. He presented to [facility] via EMS on 07/31/16 with an acute inferior STEMI. He went directly to lab intern with Dr. Nunez. Cardiac catheterization was performed and the patient received a thrombectomy followed by RCA stent placement. Admitted for optimization of medications and post-lab intern observation. 08/04 patient has normal echo, there were only 3 runs of V. tach that were probably 5 beats that was on Thursday the day after the event and none since well he has been on metoprolol and he was cleared by cardiology for discharge without the Zoll Vest as there was no indication. Acute inferior UT, present on admission. - S/p cardiac catheterization with RCA stent placement 07/31, - History of CAD with last stent placed about 10 years ago, also to the RCA. Plavix 75 mg daily x1 year/aspirin 81 mg daily/atorvastatin 40 mg HS/lisinopril 2.5mg daily/metoprolol 12.5mg BID. Nitro SL ? Cognitive impairment?- speech ordered to eval cognitive evaluation, patient's memory seems terrible ordered 08/03, not done 08/04. Might benefit from a MMSE in the office Tremor-this may be undiagnosed benign familial tremor versus Parkinson's not clear yet to be more resting probably needs outpatient follow-up patient downplays any significance. Tobacco use disorder, chronic.Approximately 25 pack year history. Has been encouraged to quit smoking altogether. Continue to encourage this throughout admission PAD, chronic, presume stable. Smoking cessation and cardiac meds BPH, chronic, presume stable. - Continue tamsulosin 0.4 mg daily. Prophylaxis-none new indicated patient's of basal Disposition-pt is full code from home Exam Vital Signs (Last) Date Time Temp Pulse Resp B/P Pulse Ox O2 Delivery O2 Flow Rate FiO2 08/04/16 17:17 37.0 67 18 99/58 95 Room Air Test 07/31/16 16:05 07/31/16 21:02 08/01/16 04:32 08/02/16 04:43 Hemoglobin A1c 5.6% (4.8-5.6) Total Bilirubin 0.6mg/dL (0.0-1.2) Aspartate Amino Transf (AST/SGOT) 27U/L (0-50) Alanine Aminotransferase (ALT/SGPT) 16U/L (0-44) Alkaline Phosphatase 68U/L (25-160) Troponin T < 0.010ug/L (0.0-0.011) Total Protein 7.3g/dL (6.4-8.4) Albumin 4.3g/dL (3.4-5.0) Triglycerides Level 116mg/dL (0-149) Cholesterol Level 247mg/dL (100-199) LDL Cholesterol, Calculated 155.800mg/dL (0-99) VLDL Cholesterol 23.200mg/dL HDL Cholesterol 68mg/dL (>39) Cholesterol/HDL Ratio 3.63 (0.0-4.4) Urine Color Yellow (YELLOW) Urine Appearance Clear (CLEAR,HAZY) Urine pH 6.5 (5.0-8.0) Urine Specific [place] 1.010 (1.003-1.035) Urine Protein Negativemg/dL (NEG,TRACE) Urine Glucose (UA) Negativemg/dL (NEGATIVE) Urine Ketones Negativemg/dL (NEGATIVE) Urine Occult Blood Small (NEGATIVE) Urine Nitrite Negative (NEGATIVE) Urine Bilirubin Negative (NEGATIVE) Urine Urobilinogen Normalmg/dL (NORMAL) Urine Leukocyte Esterase Negative (NEGATIVE) Urine RBC 3-10/hpf (0-2) Urine WBC 0-5/hpf (0-5) Urine Epithelial Cells Occasional/hpf (NONE-MOD) Urine Crystals None seen (NONE SEEN) Urine Bacteria None/hpf (NONE-FEW) Urine Hyaline Casts None/lpf (NONE) Urine Granular Casts None seen (NONE SEEN) Urine Waxy Casts None seen (NONE SEEN) Urine Red Blood Cell Casts None seen (NONE SEEN) Urine White Blood Cell Casts None seen (NONE SEEN) Urine Mucus None seen (None Seen) Urine Trichomonas None seen (NONE SEEN) Urine Yeast None (NONE SEEN) Urinalysis Comment None Urine Culture Reflexed Not indicated White Blood Count 8.8th/mm3 (3.8-10.1) Red Blood Count 4.07mil/mm3 (4.40-5.80) Hemoglobin 13.5g/dL (13.8-17.2) Hematocrit 40.3% (41.0-50.0) Mean Corpuscular Volume 99.0fL (81-100) Mean Corpuscular Hemoglobin 33.2pg (27.0-35.0) Mean Corpuscular Hemoglobin Concent 33.5% (32.0-37.0) Red Cell Distribution Width 12.8% (12.3-15.4) Platelet Count 177bil/L (150-400) Neutrophils (%) (Auto) 70.2% (40-74) Lymphocytes (%) (Auto) 15.1% (14-46) Monocytes (%) (Auto) 11.7% (4-12) Eosinophils (%) (Auto) 2.6% (0-5) Basophils (%) (Auto) 0.2% (0-3) Phosphorus Level 3.3mg/dL (2.5-4.9) Sodium Level 139mEq/L (134-144) Potassium Level 3.9mEq/L (3.5-5.2) Chloride Level 103mEq/L (97-108) Carbon Dioxide Level 24mmol/L (18-29) Blood Urea Nitrogen 14mg/dL (8-27) Creatinine 0.78mg/dL (0.76-1.27) Estimat Glomerular Filtration Rate 103mL/min (>59) Glucose Level 104mg/dL (60-99) Calcium Level 8.4mg/dL (8.5-10.1) Magnesium Level 1.9mg/dL (1.6-2.6) Test 08/03/16 03:27 Thyroid Stimulating Hormone (TSH) 2.020uIU/mL (0.450-4.500) Discharge Medications Discharge Medications Atorvastatin Calcium (Atorvastatin Calcium) 40 Mg Tablet 40 MG PO HS Prescribed by: SHERIDAN BENNETT MD Clopidogrel (Clopidogrel) 75 Mg Tablet 75 MG PO DAILY Prescribed by: SHERIDAN BENNETT MD Lisinopril (Lisinopril) 5 Mg Tablet 2.5 MG PO DAILY Prescribed by: SHERIDAN BENNETT MD Metoprolol Succinate ER (Metoprolol Succinate ER) 25 Mg Tab.er.24h 12.5 MG PO BID Prescribed by: SHERIDAN BENNETT MD Tamsulosin (Flomax) 0.4 Mg Capsule 0.4 MG PO DAILY (Reported) As needed Nitroglycerin SL (Nitrostat) 0.4 Mg Tab.subl 0.4 MG SL Q5MIN PRN PRN For Chest Pain IF SBP > 90 Prescribed by: SHERIDAN BENNETT MD Additional med instructions must take aspirin and Plavix I think this is been reinforced sufficiently or your stent may thrombose Followup Plan Follow-up plan Call for cardiology follow-up immediately they can schedule appointment appropriately What your primary care provider know you are in the hospital he may not need follow-up with him. Discharge Diet: Heart Healthy Discharge Activity: No restrictions Patient Instructions Call your development vice president for follow-up Take your medications Follow-up Provider: Collins Joseph MD Follow-up with PCP in: Other (call) Provider: Kim Hatch MD Follow-up in: Other (call for follow-up) Time spent > 30 minutes copies to: Collins Joseph MD, Andris E MD Aug 04, 2016 18:46
--- NOTE | 2016-08-04 19:41 | NUR ---
Life vest/ discharge Life vest provider called in am for ETA, sales representative electric service stating no orders in. Hospitalist made aware, orders put in and sent by [facility] with pt information. Cabin Cleaner stating will call back in about 3hrs. No call back. So at about 1600 Life Vest sales representative electric service called by RN. sales representative electric service stating needing more information on patient. Wanting documentation showing low EF and diagnosis. Hospitalist made aware. After Hospitalist consulted with Dr Staples, order to DC order for life vest and to discharge pt due to pt being stable for the last couple of days. Reviewed discharge instructions with patient and patient's son. Both verbalized understanding. Pt discharge via wheelchair with prescriptions and instructions. IV and telemetry previously discontinued. Patient left hospital with son to home self care.
== END 2016-08-04 20:10 | disposition home or self-care (01) | DRG 247 ==
LOC: EDUNIT# 15:31 → SED 15:31 → EDBD 15:31 → SPI 15:41 → PCC 17:45
PROVIDERS: ADMIT Internal Medicine Cardiovascular Disease; ATTEND Hospitalist
PROC: 027034Z Dilation of Coronary Artery, One Artery with Drug-eluting Intraluminal Device, Percutaneous Approach (ICD-10-PCS; principal; 2016-07-31)
PROC: 02C03ZZ Extirpation of Matter from Coronary Artery, One Artery, Percutaneous Approach (ICD-10-PCS; 2016-07-31)
PROC: 4A023N7 Measurement of Cardiac Sampling and Pressure, Left Heart, Percutaneous Approach (ICD-10-PCS; 2016-07-31)
PROC: B2111ZZ Fluoroscopy of Multiple Coronary Arteries using Low Osmolar Contrast (ICD-10-PCS; 2016-07-31)
DX: I21.11 ST elevation (STEMI) myocardial infarction involving right coronary artery (principal); I47.2 Ventricular tachycardia; R25.1 Tremor, unspecified; R00.1 Bradycardia, unspecified; I25.10 Atherosclerotic heart disease of native coronary artery without angina pectoris; I73.9 Peripheral vascular disease, unspecified; F17.210 Nicotine dependence, cigarettes, uncomplicated; Z79.82 Long term (current) use of aspirin; N40.0 Benign prostatic hyperplasia without lower urinary tract symptoms